=== PATIENT | male | born 1995 | race Caucasian/White ===

== ENCOUNTER 2017-05-24 10:02 | Emergency (ER) | payer BC ==
[~2017-05-24] VITALS: Ht 170.2 cm; Wt 80.6 kg
[2017-05-24 11:19] LABS: CHLORIDE 102 mEq/L (99-109)
[2017-05-24 11:20] LABS: POTASSIUM 5.3 mEq/L (3.7-5.4); SODIUM 141 mEq/L (136-147)
[2017-05-24 11:21] LABS: GLUCOSE 90 mg/dL (70-99)
[2017-05-24 11:23] LABS: HEMATOCRIT 46.3 % (38.0-50.0); HEMOGLOBIN 16.5 G/DL (12.5-16.6); MCH 32.2 PG (29.0-34.0); MCHC 35.6 G/DL (30.0-36.0); MCV 90.4 FL (86-99); PLATELET COUNT 188 K/uL (156-360); RBC DIS.WIDTH-CV 11.9 % (11.8-14.6); RBC DIS.WIDTH-SD 39.4 % (39-53); RED BLOOD COUNT 5.12 M/uL (4.00-5.50); WHITE BLOOD COUNT 6.1 K/uL (4.1-10.2)
[2017-05-24 11:25] LABS: CREATININE 1.3 mg/dL (0.6-1.3); GFR ESTIMATE (CALCULATED) > 59 mL/min/ (58.99-99999)
[2017-05-24 11:26] LABS: UREA NITROGEN (BUN) 9 mg/dL (9-23)
[2017-05-24 11:27] LABS: TROP-I INTERPRETATION NEGATIVE; TROPONIN-I < 0.01 ng/mL (0.0-0.30)
[2017-05-24 12:19] VITALS: BP 148/97
== END 2017-05-24 12:21 | disposition home or self-care (01) ==
LOC: EME 10:02
DX: R07.9 Chest pain, unspecified (principal)
CPT/HCPCS: 71046; 80048; 84484; 85027; 93005; 99281; 99284